=== PATIENT | female | born 1960 | race Two or more races ===

== ENCOUNTER 2022-02-23 03:32 | Emergency (ER) | payer OTHER ==
[~2022-02-23] VITALS: Ht 170.2 cm; Wt 81.6 kg
[2022-02-23] MEDS ORDERED: CARDIZEM CD240 MG PO (03:45)
== END 2022-02-23 10:48 | disposition home or self-care (01) ==
LOC: ER 03:32
DX: R22.0 Localized swelling, mass and lump, head (principal); K08.89 Other specified disorders of teeth and supporting structures